=== PATIENT | female | born 1960 | race Caucasian/White ===

== ENCOUNTER → 2023-04-26 16:15 | Outpatient (REF) | payer OTHER, SELFPAY | LOC: HWWDC 16:15 | PROVIDERS: ATTENDING PHYSICIAN Family Medicine; OTHER PHYSICIAN Obstetrics & Gynecology | DX: Z12.31 Encounter for screening mammogram for malignant neoplasm of breast (principal) | CPT/HCPCS: 77063; 77067 ==

== ENCOUNTER → 2023-10-04 06:36 | Outpatient (REF) | payer OTHER, SELFPAY | LOC: EMG 06:36 | PROVIDERS: ATTENDING PHYSICIAN Orthopaedic Surgery; FAMILY PHYSICIAN Family Medicine | DX: M79.642 Pain in left hand (principal); M79.641 Pain in right hand; G56.03 Carpal tunnel syndrome, bilateral upper limbs; R20.2 Paresthesia of skin | CPT/HCPCS: 95886; 95911 ==

== ENCOUNTER → 2024-04-30 07:53 | Outpatient (REF) | payer OTHER, SELFPAY | LOC: HWWDC 07:53 | PROVIDERS: ATTENDING PHYSICIAN Family Medicine | DX: N95.9 Unspecified menopausal and perimenopausal disorder (principal); Z12.31 Encounter for screening mammogram for malignant neoplasm of breast | CPT/HCPCS: 77063; 77067; 77080 ==